=== PATIENT | female | born 1995 | race Caucasian/White ===

== ENCOUNTER 2021-03-02 15:29 | Outpatient (CLI) | payer BC, SELFPAY ==
--- NOTE | 2021-03-02 15:49 | US_ITS ---
WS: [id number] EARLY OBSTETRICAL ULTRASOUND (<14 WEEKS). HISTORY: SUPERVISION OF NORMAL COMPARISON: None available. Single intrauterine gestational sac is identified. Cardiac activity at 176 BPM. [place]-rump length eduardo sures 3.6 cm which corresponds to a gestation of 10w4d. Normal-appearing yolk sac and amnion demonstr ated. No subchorionic hemorrhage. No free fluid. Normal size ovaries with no mass. Cervix is closed and normal length of 4.7 cm. US/US OB <= 14 weeks fetus [id number] IMPRESSION: 1. Single intrauterine gestation of 10 weeks 4 days with an EDC of 09/24/2021. 2. Normal cardiac activity.
== END 2021-03-02 15:30 | disposition home or self-care (01) ==
LOC: RAD 15:33
PROVIDERS: Visit Provider Family Medicine
DX: Z34.81 Encounter for supervision of other normal pregnancy, first trimester; Z3A.10 10 weeks gestation of pregnancy
CPT/HCPCS: 76801

== ENCOUNTER 2021-05-19 09:15 | Outpatient (CLI) | payer BC, SELFPAY ==
--- NOTE | 2021-05-19 09:18 | US_ITS ---
WS: [id number] ULTRASOUND OB COMPLETE TECHNIQUE: Complete ultrasound. CLINICAL INFORMATION: ANATOMY COMPARISON: March 02, 2021 FINDINGS: Cervix is long and closed and measures 7.6 cm Single interuterine gestation is identified with cephalic presentation. Placenta is anterior. Placenta grade 0. Normal amniotic fluid volume. cardiac activity: 147 BPM. AGA: 21w5d OFELIA by ultrasound: 09/24/2021 Estimated weight: 467 g BDP: 5.0 cm = 21w1d HC: 18.8 cm = 21w1d AC: 16.8 cm = 21w5d FEMUR LENGTH: 3.9 cm = 22w4d Anatomic survey: Four-chamber heart not well visualized. Anatomic survey is otherwise normal. Normal stomach. Kidneys and bladder are normal. Normal 3 vessel cord. Normal 3 vessel cord insertion. Normal spine. Intracranial contents are normal. Normal posterio r fossa and cisterna magna. US/US OB >= 14 weeks fetus [id number] IMPRESSION: 1. Single intrauterine with visualized cardiac activity. AGA 21w5d w ith OFELIA 09/24/2021. 2. Placenta is anterior. No evidence of abruption or previa. 3. Four-chamber heart not well visualized. Anatomic survey is otherwise normal . 4. Normal amniotic fluid volume.
== END 2021-05-19 09:16 | disposition home or self-care (01) ==
LOC: RAD 09:16
PROVIDERS: PCP Family Medicine; Visit Provider Family Medicine
DX: Z34.82 Encounter for supervision of other normal pregnancy, second trimester; Z3A.21 21 weeks gestation of pregnancy
CPT/HCPCS: 76805

== ENCOUNTER 2021-07-13 07:48 | Outpatient (CLI) | payer BC, SELFPAY ==
--- NOTE | 2021-07-13 07:57 | US_ITS ---
WS: [id number] ULTRASOUND OB FOCUSED HISTORY: FOLLOW UP US OF HEART COMPARISON: 05/19/2021 Single intrauterine gestation in cephalic position. Cervix is closed at 3.8 cm. Placenta is anterior and grade 1. heart rate at 141 BPM. Difficulty visualizing four-chamber heart due to maternal body habitus and positioning. Cardiac outflow tracts are better seen today but still difficult due to position. [place] [id number] IMPRESSION: 1. Limited evaluation of the four-chamber heart. Continued limited evaluation of the outflow tracts due to body habitus and position of the fetus. 2. Normal cardiac activity.
== END 2021-07-13 07:49 | disposition home or self-care (01) ==
LOC: RAD 07:50
PROVIDERS: PCP Family Medicine; Visit Provider Family Medicine
DX: Z34.80 Encounter for supervision of other normal pregnancy, unspecified trimester (principal)
CPT/HCPCS: 76816

== ENCOUNTER 2021-07-26 18:20 | Outpatient (CLI) | payer BC, SELFPAY ==
[2021-07-26] VITALS (45 sets, daily range): BP systolic 103–136; BP diastolic 52–64; PULSE 108–132; RESP 16; TEMP 37.4; O2SAT 93–100; BMI 33.4
[2021-07-26 19:40] LABS: Basophils % 0.1 %; Eosinophils % 0.3 %; Hematocrit 32.6 % (37.0-47.0); Hemoglobin 10.6 g/dL (11.5-15.3); Lymphocytes # 0.4 10^3/uL (0.8-4.8); Lymphocytes % 4.4 %; Mean Corpuscular HGB Conc 32.5 g/dL (30.0-36.0); Mean Corpuscular Hemoglobin 30.4 pg (28.0-34.0); Mean Corpuscular Volume 93.4 fl (81-99); Mean Platelet Volume 11.6 fL (7.4-10.4); Monocytes # 0.7 10^3/uL (0.2-0.9); Monocytes % 7.3 %; Neutrophils % 87.2 %; Nucleated Red Blood Cells % 0 %; Platelet Count 185 10^3/cmm (130-400); Red Blood Count 3.49 10^6/uL (4.1-5.3); Red Cell Distribution Width 14.1 % (12.1-15.1); White Blood Count 10.1 10^3/uL (4.0-10.0)
[2021-07-26 20:03] LABS: Add Urine Microscopic? YES; Bilirubin Urine Neg (Negative); Blood Urine Neg (Negative); Glucose Urine UA Norm (Normal); Ketones Urine Negative (Negative); Leukocyte Esterase Urine Trace (Negative); Nitrate Urine Negative (Negative); Protein Urine Neg (Negative); Urine Appearance Hazy (CLEAR); Urine Color Yellow (Yellow); Urobilinogen Urine Neg (Negative); pH Urine 7 (5-7)
[2021-07-26 20:04] LABS: Add Urine Culture? No; Bacteria Urine 1+ /hpf
[2021-07-26 20:27] LABS: Chloride 100 mmol/L (98-107)
[2021-07-26 20:40] LABS: Alanine Aminotransferase 13 U/L (0-33); Albumin Level 3.5 g/dL (3.5-5.2); Alkaline Phosphatase 94 IU/L (35-105); Aspartate Amino Transferase 19 U/L (0-32); Blood Urea Nitrogen 3 mg/dL (6-20); Calcium 9.7 mg/dL (8.5-10.5); Carbon Dioxide 19 mmol/L (22-29); Globulin 2.6 g/dL (1.3-4.6); Glomerular Filtration Rate 191.5 mL/min (90-130); Glucose 101 mg/dL (65-115); Osmolality Calculated 269 mOsm/kg (285-295); Sodium 131 mmol/L (136-145); Total Bilirubin 0.4 mg/dL (0.15-1.2); Total Protein 6.1 g/dL (6.6-8.7)
[2021-07-26 21:25] LABS: Adenovirus Not Detected (NOT DETECT); Chlamydia Pneumoniae Not Detected (NOT DETECT); Coronavirus 229E,HKU1,NL63,OC4 Not Detected (NOT DETECT); Human Metapneumovirus Not Detected (NOT DETECT); Human Rhinovirus/Enterovirus Not Detected (NOT DETECT); Influenza A Not Detected (NOT DETECT); Influenza A H1 Not Detected (NOT DETECT); Influenza A H1-2009 Not Detected (NOT DETECT); Influenza A H3 Not Detected (NOT DETECT); Influenza B Not Detected (NOT DETECT); Mycoplasma Pneumoniae Not Detected (NOT DETECT); Parainfluenza Virus Type 1 Not Detected (NOT DETECT); Parainfluenza Virus Type 2 Not Detected (NOT DETECT); Parainfluenza Virus Type 3 Not Detected (NOT DETECT); Parainfluenza Virus Type 4 Not Detected (NOT DETECT); Respiratory Syncytial Virus A Not Detected (NOT DETECT); Respiratory Syncytial Virus B Not Detected (NOT DETECT); SARS-COV-2 Detected (NOT DETECT)
[2021-07-26 21:26] LABS: Magnesium 1.4 mg/dL (1.7-2.3)
[2021-07-26] MEDS: potassium chloride ER 20 mEq Tablet 40 MEQ PO (21:47)
== END 2021-07-26 21:55 | disposition home or self-care (01) ==
LOC: OPOB 18:28 → OBGYN 18:29
PROVIDERS: PCP Family Medicine; Visit Provider Family Medicine
DX: O26.899 Other specified pregnancy related conditions, unspecified trimester (principal); Z3A.00 Weeks of gestation of pregnancy not specified
CPT/HCPCS: 36415; 59025; 80053; 81001; 83735; 85025; 87635; 99211

== ENCOUNTER 2021-07-28 08:11 | Outpatient (CLI) | payer BC, SELFPAY ==
[2021-07-28 08:21] VITALS: BMI 33.7
[2021-07-28 09:00] VITALS: BP 140/80; PULSE 119; RESP 17; TEMP 36.7; O2SAT 99
[2021-07-28 09:25] VITALS: BP 120/75; PULSE 97; RESP 18; TEMP 36.9; O2SAT 98
[2021-07-28 10:20] VITALS: BP 132/73; PULSE 95; RESP 17; TEMP 36.8; O2SAT 98
== END 2021-07-28 10:23 | disposition home or self-care (01) ==
PROVIDERS: PCP Family Medicine; Visit Provider Nurse Practitioner Family
DX: U07.1 COVID-19 (principal)
CPT/HCPCS: 96365

== ENCOUNTER 2021-09-08 11:20 | Outpatient (CLI) | payer BC, SELFPAY ==
[2021-09-08] VITALS (10 sets, daily range): BP systolic 118–129; BP diastolic 62–71; PULSE 85–100; RESP 17; TEMP 36.2; BMI 34.4
--- NOTE | 2021-09-08 | US_ITS ---
WS: [id number] BIOPHYSICAL PROFILE AMNIOTIC FLUID HISTORY: INCREASED BLOOD PRESSURE KHOA,BPP COMPARISON: 08/14/2021 Cardiac activity: 144 bpm. Cervix: closed. Placenta: Anterior, no previa or abruption. Placenta grade: 2 Parameters are as follows: Breathin Movement: 2 Tone: 2 Fluid volume: 2 Amniotic fluid index: 15.1 cm. Largest vertical pocket 5.4 cm. US/US OB BPP wo NST [id number] IMPRESSION: 1. Biophysical profile score: 8/8. 2. Normal amniotic fluid index.
--- NOTE | 2021-09-08 11:39 | US_ITS ---
WS: [id number] BIOPHYSICAL PROFILE AMNIOTIC FLUID HISTORY: INCREASED BLOOD PRESSURE KHOA,BPP COMPARISON: 08/14/2021 Cardiac activity: 144 bpm. Cervix: closed. Placenta: Anterior, no previa or abruption. Placenta grade: 2 Parameters are as follows: Breathin Movement: 2 Tone: 2 Fluid volume: 2 Amniotic fluid index: 15.1 cm. Largest vertical pocket 5.4 cm. US/US OB limited [id number] IMPRESSION: 1. Biophysical profile score: 8/8. 2. Normal amniotic fluid index.
[2021-09-09 17:50] LABS: Total Volume, Urine 3110 mL; Urine Total Protein 8.5 mg/24HR (0-150); Urine Total Protein 24 Hour 264.4 mg/dL (0-150)
== END 2021-09-08 13:17 | disposition home or self-care (01) ==
LOC: OPOB 11:25 → OBGYN 11:26
PROVIDERS: PCP Family Medicine; Visit Provider Family Medicine
DX: O16.9 Unspecified maternal hypertension, unspecified trimester (principal); Z3A.00 Weeks of gestation of pregnancy not specified
CPT/HCPCS: 59025; 76815; 76819; 99211

== ENCOUNTER 2021-09-09 16:20 | Outpatient (CLI) | payer BC, SELFPAY | END 2021-09-09 16:21 | disposition home or self-care (01) | PROVIDERS: PCP Family Medicine; Visit Provider Family Medicine | DX: Z01.89 Encounter for other specified special examinations (principal) | CPT/HCPCS: 84156 ==

== ENCOUNTER 2021-09-14 09:40 | Outpatient (CLI) | payer BC, SELFPAY ==
[2021-09-14 09:40] VITALS: RESP 17; BMI 34.5
[2021-09-14 09:54] VITALS: BP 135/78; PULSE 88
[2021-09-14 10:10] VITALS: BP 127/58; PULSE 90
[2021-09-14 10:22] VITALS: BP 127/58; PULSE 90
== END 2021-09-14 10:22 | disposition home or self-care (01) ==
LOC: OPOB 09:44 → OBGYN 09:45
PROVIDERS: PCP Family Medicine; Visit Provider Family Medicine
DX: O16.9 Unspecified maternal hypertension, unspecified trimester (principal); Z3A.00 Weeks of gestation of pregnancy not specified
CPT/HCPCS: 59025

== ENCOUNTER 2021-09-21 15:55 | Outpatient (CLI) | payer BC, SELFPAY ==
[2021-09-21 13:40] VITALS: BMI 34.7
[2021-09-21 16:05] VITALS: BP 138/78; PULSE 88
[2021-09-21 16:06] VITALS: RESP 18; TEMP 36.6
[2021-09-21 16:21] VITALS: BP 135/67; PULSE 83
--- NOTE | 2021-09-21 16:59 | PC.NURSE ---
Documentation time entered in error patient here from 1555 to 1632.
== END 2021-09-21 16:32 | disposition home or self-care (01) ==
LOC: OPOB 15:58 → OBGYN 15:59
PROVIDERS: PCP Family Medicine; Visit Provider Family Medicine
DX: O16.9 Unspecified maternal hypertension, unspecified trimester (principal); Z3A.00 Weeks of gestation of pregnancy not specified
CPT/HCPCS: 59025

== ENCOUNTER 2021-09-24 18:46 | Inpatient (IN) | payer BC, SELFPAY ==
[2021-09-24] VITALS (16 sets, daily range): BP systolic 122–141; BP diastolic 56–78; PULSE 77–98; RESP 17; TEMP 36.4; BMI 34.5
[2021-09-24 19:03] LABS: Basophils % 0.1 %; Eosinophils # 0.1 10^3/uL (0.0-0.8); Eosinophils % 0.5 %; Hematocrit 34.3 % (37.0-47.0); Hemoglobin 11.3 g/dL (11.5-15.3); Lymphocytes # 2.5 10^3/uL (0.8-4.8); Lymphocytes % 17.7 %; Mean Corpuscular HGB Conc 32.9 g/dL (30.0-36.0); Mean Corpuscular Hemoglobin 31.1 pg (28.0-34.0); Mean Corpuscular Volume 94.5 fl (81-99); Mean Platelet Volume 12.6 fL (7.4-10.4); Monocytes % 6.8 %; Neutrophils # 10.51 10^3/uL (1.8-7.7); Neutrophils % 74.5 %; Nucleated Red Blood Cells % 0 %; Platelet Count 223 10^3/cmm (130-400); Red Blood Count 3.63 10^6/uL (4.1-5.3); Red Cell Distribution Width 14.4 % (12.1-15.1); White Blood Count 14.1 10^3/uL (4.0-10.0)
[2021-09-24] MEDS: oxytocin 30 UNIT/500 ML BAG 4 UNIT IV (19:45)
[2021-09-24] MEDS: dextrose 5%-lactated ringers 1,000 ML 125 ML IV (19:46)
--- NOTE | 2021-09-24 21:05 | PM.HP ---
Providers/Chief Complaint Admitting Physician: Renny Matthews MD Primary Care Provider: Renny Matthews MD Chief Complaint: induction History of Present Illness Cass Gomez is a 26 year old at 39.3 weeks gestation by LMP consistent with 11-week ultrasound. Her is complicated by COVID-19 on July 26, 2021, borderline gestational hypertension. The patient presents to labor and delivery for induction of labor. Her blood pressures had been becoming more elevated and she was pulled off of work and they began to improve significantly. For this reason we were able to wait for induction of labor. Patient denies any headaches, flashes of light, fevers, cough, nausea, vomiting, use fluid, vaginal bleeding. The patient is 3 cm dilated up on arrival and will be started on IV Pitocin. Medications/Allergies Home Medications Medication Instructions Recorded Confirmed Last Taken Type amoxicillin 875 mg tablet 875 mg PO BID 7 Days #14 tab 01/04/20 01/04/20 Unknown Rx pseudoephedrine HCl 30 mg tablet 30 mg PO Q6H PRN 15 Days #30 tab 01/04/20 01/04/20 Unknown Rx (Sudafed) 100 ml PO 09/08/21 Unknown History Allergies Allergy/AdvReac Type Severity Reaction Status Date / Time Sulfa (Sulfonamide Allergy rash Verified 09/14/21 11:22 Antibiotics) PFSH Acute PFSH: Medical History Otitis media s Family History (Updated 01/04/20 @ 15:39 by Josette Carrillo LPN) Other Cancer Social History Smoking and tobacco status: never smoked Alcohol intake: never Female Reproductive History: : 2 Vitals/I&O/Wt Last Vital Signs Pulse 81 09/24/21 20:42 Resp 17 09/24/21 18:56 BP 133/73 09/24/21 20:42 Physical Exam Narrative: General: Alert and oriented x3 Eyes: Pupils equal round and reactive to light and accommodation Mouth: Mucous membranes moist, pharynx non-erythematous Cardiac: Regular rate and rhythm without murmurs Lungs: Clear to auscultation bilaterally without wheezes, crackles or rhonchi Abdomen: Soft, non-tender, fundus consistent with gestational age Extremities: Trace edema in the bilateral lower extremities Data : 09/24/21 18:09 A&P Assessment and plan (1) Intrauterine : Status: Acute (2) Gestational hypertension: Status: Acute Plan The patient is doing well at this time. heart tones are in the mid 150s with moderate variability good accelerations with a category 1 tracing. She is having contractions every 2 to 3 minutes on 8 units of IV Pitocin. She has changed from 2 cm dilation to 4 to 5 cm dilation. She will be set up for a laboring epidural. Proceed with routine intrapartum management of labor. We will watch blood pressures to be sure that they do not start to increase significantly. All questions were answered. The patient and her are in agreement with her plan of care. The patient is GBS negative. Test was done on 09/04/2021. Attestations Medical Necessity Statement*: The patient will be here for greater than 2 midnights due to routine intrapartum and management of labor and delivery. Coding Level of Care Code Acute Viscose Department Worker for Boni Rodriguez Diagnoses Intrauterine Z34.90 Gestational hypertension O13.9
[2021-09-24] MEDS: lactated ringers 1,000 ML 999 ML IV (21:08)
[2021-09-25] VITALS (56 sets, daily range): BP systolic 101–149; BP diastolic 53–91; PULSE 65–122; RESP 16; TEMP 36.3–36.7; O2SAT 86–100
[2021-09-25] MEDS: lactated ringers 1,000 ML 999 ML IV ×2 (01:19→02:34)
--- NOTE | 2021-09-25 02:44 | ANES.PREANE2 ---
Pre-Anesthetic Assessment Height/Weight: Height 1.78 m Pulse Resp BP 76 17 125/57 09/25/21 02:27 09/24/21 18:56 09/25/21 02:27 Preop Diagnosis: labor epidural Familial anesthetic complications: none Was Beta Tessa taken within 24 hours: N/A Was Clonidine taken within 24 hours: N/A Last Intake: 17:30 Social No alcohol and No tobacco Exam alert, oriented x 3, clear to auscultation bilaterally and regular rate & rhythm Airway Submandibular: within normal limits Cervical ROM: within normal limits Mallampati: Class I Dentition: full Pulmonary None reported CV/HEM Hypertension (with ) None reported Hepatic None reported GI Gastroesophageal Reflux Disease (with ) Metabolic None reported Musc/skel None reported Neuropsych Anxiety Anesthetic Plan ASA status: 2 Anesthesia: Regional (specify below) (epidural) Medications/Allergies Home Medications Medication Instructions Recorded Confirmed Last Taken Type amoxicillin 875 mg tablet 875 mg PO BID 7 Days #14 tab 01/04/20 01/04/20 Unknown Rx pseudoephedrine HCl 30 mg tablet 30 mg PO Q6H PRN 15 Days #30 tab 01/04/20 01/04/20 Unknown Rx (Sudafed) 100 ml PO 09/08/21 Unknown History Allergies Allergy/AdvReac Type Severity Reaction Status Date / Time Sulfa (Sulfonamide Allergy rash Verified 09/14/21 11:22 Antibiotics) Current Medications Generic Name Dose Route Start Last Admin Trade Name Freq PRN Reason Stop Dose Admin Dextrose/Lactated Ringer's 1,000 mls @ 125 mls/hr 09/24/21 18:45 09/24/21 21:08 Dextrose 5%-Lactated Ringers IV 0 mls/hr .Q8H BOYD Infusion Oxytocin 30 unit in 500 mls @ 1 mls/hr 09/24/21 18:45 09/25/21 00:06 Pitocin IV 12 milliunit/min .Q24H BOYD 12 mls/hr Titration Protocol 1 MILLIUNIT/MIN Lactated Ringer's 1,000 mls @ 999 mls/hr 09/24/21 20:41 09/25/21 01:19 Lactated Ringers IV 999 mls/hr .Q1H1M PRN Administration See label comments Lactated Ringer's 1,000 mls @ 999 mls/hr 09/25/21 02:26 09/25/21 02:34 Lactated Ringers IV 09/25/21 03:26 999 mls/hr .Q1H1M ONE Administration PFSH Anesthesia Medical History Otitis media s Family History (Updated 01/04/20 @ 15:39 by Josette Carrillo LPN) Other Cancer Social History Smoking and tobacco status: never smoked Alcohol intake: never Female Reproductive History : 2 Data Anesthesia : 09/24/21 18:09 Short CBC 09/24/21 Range/Units 18:09 WBC 14.1 H (4.0-10.0) 10^3/uL Hgb 11.3 L (11.5-15.3) g/dL Hct 34.3 L (37.0-47.0) % MCV 94.5 (81-99) fl Plt Count 223 (130-400) 10^3/cmm Neut % (Auto) 74.5 % Neut # (Auto) 10.51 H (1.8-7.7) 10^3/uL Cardiac Studies: No Data to Display
--- NOTE | 2021-09-25 03:14 | ANES.PROC ---
Anesthesia Procedures Procedure/Date: 09/25/21 Epidural: Time Out Performed: Yes Consents Signed: Procedure Consent Consent: requested by attending/covering physician, from patient, risks and benefits reviewed and patient agrees to proceed Lumbar Level: L3-L4 Epidural position: sitting Epidural procedure: sterile prep of area (betadine), 1% lidocaine to numb the area (3ml), 18 g needle, neg for paresthesia, test dose given, 1.5% xylocaine 1:200k epi (3ml/2ml), placed PCEA, no systemic response, sterile dressing applied, L.U.D. no apparent complications and 0.2% Ropiavacaine @ mls/hr (13ml/hr)
--- NOTE | 2021-09-25 08:50 | PM.DELIVERY ---
Delivery Note: Date of delivery: September 25, 2021 Pre-delivery diagnoses: 1. Intrauterine at 39.4 weeks gestation 2. COVID-19 on July 26, 2021 3. Borderline gestational hypertension Post-delivery diagnoses: 1. Intrauterine status post spontaneous vaginal delivery at 39.4 weeks gestation 2. COVID-19 on July 26, 2021 3. Borderline gestational hypertension 4. Delivery of healthy female weighing 9 pounds 13 ounces with Apgars of 9 and 9 Procedure: Spontaneous vaginal delivery Delivering Physician: Renny Matthews MD Estimated blood loss (mL): 100 Findings: 1. Intact placenta with central umbilical cord insertion site 2. Healthy female weighing 9 pounds 13 ounces with Apgars of 9 and 9 Pre-Delivery Course: Cass Gomez is a 26 year old G2 now P2 status post spontaneous vaginal delivery at 39.4 weeks gestation by LMP consistent with 11-week ultrasound.? Her was complicated by COVID-19 on July 26, 2021, borderline gestational hypertension. The patient was brought in for induction of labor secondary to borderline gestational hypertension. She was admitted on the evening of 09/24/2021 and was 3 cm dilated. She was started on IV Pitocin and made gradual change. By 5:57 AM on 09/25/2021 she had spontaneous rupture of membranes. Meconium stained fluid was noted. The patient did not have any concerning heart tone findings other than early decelerations near delivery. The patient was complete by 7:58 AM on 09/25/2021. Delivery: The patient began pushing at 8:11 AM on 09/25/2021. The patient pushed well and the infant delivered in the OA position at 8:21 AM on 09/25/2021. Left shoulder was the anterior shoulder and it delivered with steady downward pressure. Rest the infant delivered without complication. There was no nuchal cord. The 's mouth and nose were bulb suctioned by myself. The infant was placed on the mother's chest where the nurses were waiting to care for her. The cord was clamped after approximately 1 minute by myself and cut by the 's father. Cord blood was obtained. Cord was then drained of blood and traction was placed on the umbilical cord and uterine massage was carried out. The placenta delivered without complication at 8:27 AM on 09/25/2021. The placenta was noted to be intact with a central umbilical cord insertion site. There were scattered calcifications on the placental bed. No significant meconium staining was noted. The cervix was inspected and no lacerations were noted. Vaginal wall was inspected and a second-degree midline vaginal laceration was noted in the perineal region. The epidural provided adequate anesthesia and 3-0 Vicryl was used in a running fashion to close the laceration. A rectal exam was done and no sutures were noted in the rectal vault. The patient tolerated the procedure well. Currently both the mother and infant are doing well. History History History 2 Term 2 Miscarriages/Ectopic 0 Living Children 2 Coding Level of Care Code Acute Nuclear Medicine Physician for Chg Jennifer
[2021-09-25] MEDS: docusate sodium 100 mg Capsule PO ×2 (11:55→18:30)
[2021-09-25] MEDS: prenatal vitamin Capsule 1 CAP PO (11:55)
[2021-09-25] MEDS: lanolin oint 7 gm 1 APPLIC TOPICAL (11:55)
[2021-09-25] MEDS: ibuprofen 800 mg tablet PO ×3 (11:56→23:38)
[2021-09-25] MEDS: benzocaine-menthol 78 gm Canister 1 SPRAY TOPICAL (11:56)
--- NOTE | 2021-09-25 13:35 | ANE.PACU2 ---
Inpatient post-anesthesia follow up: Airway intact: Yes Vital signs: Temperature 97.3 F Pulse Rate 93 Respiratory Rate 17 Blood Pressure 124/66 Pulse Oximetry 97 Oxygen Delivery Me thod Room Air Oxygen Flow Rate Fraction of Inspir ed Oxygen Hydration adequate: Yes Nausea and vomiting: No Pain level: 2 Mental status: Baseline
[2021-09-25 21:56] LABS: Hematocrit 32.2 % (37.0-47.0); Hemoglobin 10.6 g/dL (11.5-15.3); Mean Corpuscular HGB Conc 32.9 g/dL (30.0-36.0); Mean Corpuscular Volume 94.2 fl (81-99); Mean Platelet Volume 12.2 fL (7.4-10.4); Platelet Count 224 10^3/cmm (130-400); Red Blood Count 3.42 10^6/uL (4.1-5.3); Red Cell Distribution Width 14.4 % (12.1-15.1); White Blood Count 16.8 10^3/uL (4.0-10.0)
[2021-09-26 04:04] VITALS: BP 123/70; PULSE 78
[2021-09-26 04:12] VITALS: TEMP 36.7
[2021-09-26] MEDS: ibuprofen 800 mg tablet PO ×3 (09:19→22:47)
[2021-09-26] MEDS: docusate sodium 100 mg Capsule PO (09:19)
[2021-09-26] MEDS: prenatal vitamin Capsule 1 CAP PO (09:19)
[2021-09-26 09:25] VITALS: BP 125/69; PULSE 81; RESP 16; TEMP 36.6
--- NOTE | 2021-09-26 14:58 | PM.PN ---
Subjective Subjective: The patient is doing well today. She is ambulating, voiding, passing gas and tolerating food by mouth. Her pain is well controlled. She has no concerns at this time. Vitals/I&O/Wt Last Vital Signs Temp 97.8 F 09/26/21 09:25 Pulse 81 09/26/21 09:25 Resp 16 09/26/21 09:25 BP 125/69 09/26/21 09:25 Pulse Ox 97 09/25/21 04:17 09/25/21 09/26/21 09/26/21 22:59 06:59 14:59 Output Total 100 / 1200 Balance -100 / -91.333 Weight last 48 hrs Weight 241 lb Weight 241 lb Physical Exam Narrative: General: Alert and oriented x3 Cardiac: Regular rate and rhythm without murmurs Lungs: Clear to auscultation bilaterally without wheezes, crackles or rhonchi Abdomen: Soft, mild tenderness over uterus. The uterus is firm and 2 cm below the umbilicus. Extremities: Trace edema in the bilateral lower extremities Urinary Catheter Management: Newman Latex: Cath Placed During This Visit: yes, but has since been removed by the nurse Reason for Continuing Indwelling Catheter: Decision to DC Catheter Urinary Catheter Date of Insertion: 09/25/21 Urinary Catheter Time of Insertion: 03:40 Date Urinary Catheter Removed: 09/25/21 Time Urinary Catheter Discontinued: 08:05 Data : 09/25/21 21:39 A&P Assessment and plan (1) Spontaneous vaginal delivery: Status: Acute Plan The patient is doing well. She is showing no signs of complications. We will continue with routine care. If everything continues to go well, will plan for discharge home tomorrow. Attestations Medical Necessity Statement*: The patient will be here for greater than 2 midnights due to routine intrapartum and management of labor and delivery. Coding Level of Care Code Acute Scrubbing Machine Operator for Boni Rodriguez Diagnoses Spontaneous vaginal delivery O80
[2021-09-26 15:10] VITALS: BP 123/75; PULSE 69; RESP 16; TEMP 36.6
--- NOTE | 2021-09-27 08:47 | PM.DCS ---
Discharge Providers Date of Admission: 09/24/21 18:46 Date of Discharge: September 27, 2021 Attending Provider at Admission: Renny Matthews MD Attending Provider at Discharge: Renny Matthews MD Primary Care Provider: Renny Matthews MD Diagnoses at Discharge Discharge Diagnosis (1) Spontaneous vaginal delivery: Status: Resolved Other Information Additional DC diagnoses/information: 1.? Intrauterine status post spontaneous vaginal delivery at 39.4 weeks gestation 2.? COVID-19 on July 26, 2021 3.? Borderline gestational hypertension 4.? Delivery of healthy infant female weighing 9 pounds 13 ounces with Apgars of 9 and 9? Reason for Visit Reason for Visit: induction Brief History: Cass Gomez is a 26 year old G2 now P2 status post spontaneous vaginal delivery at 39.4 weeks gestation by LMP consistent with 11-week ultrasound.? Her was complicated by COVID-19 on July 26, 2021, borderline gestational hypertension. Hospital Course Hospital Course The patient was brought in for induction of labor secondary to borderline gestational hypertension.? She was admitted on the evening of 09/24/2021 and was 3 cm dilated.? She was started on IV Pitocin and made gradual change.? By 5:57 AM on 09/25/2021 she had spontaneous rupture of membranes.? Meconium stained fluid was noted.? The patient did not have any concerning heart tone findings other than early decelerations near delivery.? The patient was complete by 7:58 AM on 09/25/2021. The patient began pushing at 8:11 AM on 09/25/2021.? The patient pushed well and the infant delivered in the OA position at 8:21 AM on 09/25/2021.? Left shoulder was the anterior shoulder and it delivered with steady downward pressure.? Rest the infant delivered without complication.? There was no nuchal cord.? The infant's mouth and nose were bulb suctioned by myself.? The was placed on the mother's chest where the nurses were waiting to care for her.? The cord was clamped after approximately 1 minute by myself and cut by the infant's father.? Cord blood was obtained.? Cord was then drained of blood and traction was placed on the umbilical cord and uterine massage was carried out.? The placenta delivered without complication at 8:27 AM on 09/25/2021.? The placenta was noted to be intact with a central umbilical cord insertion site.? There were scattered calcifications on the placental bed.? No significant meconium staining was noted.? The cervix was inspected and no lacerations were noted.? Vaginal wall was inspected and a second-degree midline vaginal laceration was noted in the perineal region.? The epidural provided adequate anesthesia and 3-0 Vicryl was used in a running fashion to close the laceration. the patient has done well. She has had no complications. Her did have hypoglycemia that was treated with IV D10. They are both doing well at the time of discharge and the mother is breast-feeding. We will plan for discharge home today. Routine discharge instructions were discussed. All questions were answered. The patient and her are in agreement with current plan of care. Physical Exam Narrative: General: Alert and oriented x3 Cardiac: Regular rate and rhythm without murmurs Lungs: Clear to auscultation bilaterally without wheezes, crackles or rhonchi Abdomen: Soft, mild tenderness over uterus. The uterus is firm and 2 cm below the umbilicus. Extremities: Trace edema in the bilateral lower extremities Urinary Catheter Management: Newman Latex: Cath Placed During This Visit: yes, but has since been removed by the nurse Reason for Continuing Indwelling Catheter: Decision to DC Catheter Urinary Catheter Date of Insertion: 09/25/21 Urinary Catheter Time of Insertion: 03:40 Date Urinary Catheter Removed: 09/25/21 Time Urinary Catheter Discontinued: 08:05 Discharge Data Studies Completed and Pending Laboratory Results WBC 16.8 10^3/uL (4.0-10.0) H 09/25/21 21:39 RBC 3.42 10^6/uL (4.1-5.3) L 09/25/21 21:39 Hgb 10.6 g/dL (11.5-15.3) L 09/25/21 21:39 Hct 32.2 % (37.0-47.0) L 09/25/21 21:39 MCV 94.2 fl (81-99) 09/25/21 21:39 MCH 31.0 pg (28.0-34.0) 09/25/21 21:39 MCHC 32.9 g/dL (30.0-36.0) 09/25/21 21:39 RDW 14.4 % (12.1-15.1) 09/25/21 21:39 Plt Count 224 10^3/cmm (130-400) 09/25/21 21:39 MPV 12.2 fL (7.4-10.4) H 09/25/21 21:39 Neut % (Auto) 74.5 % 09/24/21 18:09 Lymph % (Auto) 17.7 % 09/24/21 18:09 [place] % (Auto) 6.8 % 09/24/21 18:09 Eos % (Auto) 0.5 % 09/24/21 18:09 Baso % (Auto) 0.1 % 09/24/21 18:09 Neut # (Auto) 10.51 10^3/uL (1.8-7.7) H 09/24/21 18:09 Lymph # (Auto) 2.5 10^3/uL (0.8-4.8) 09/24/21 18:09 [place] # (Auto) 1.0 10^3/uL (0.2-0.9) H 09/24/21 18:09 Eos # (Auto) 0.1 10^3/uL (0.0-0.8) 09/24/21 18:09 Baso # (Auto) 0.0 10^3/uL (0.0-0.1) 09/24/21 18:09 Nucleated RBC % (auto) 0 % 09/24/21 18:09 Nucleated RBCs # 0.0 /100WBC 09/24/21 18:09 Vitals Last Vital Signs Temp 97.9 F 09/26/21 15:10 Pulse 69 09/26/21 15:10 Resp 16 09/26/21 15:10 BP 123/75 09/26/21 15:10 Pulse Ox 97 09/25/21 04:17 Discharge Plan Discharge Patient Disposition: Home Condition: Good Prescriptions: New ibuprofen 800 mg Tablet 800 mg PO TID Qty: 60 0RF ferrous sulfate 325 mg (65 mg iron) tablet 325 mg PO BID Qty: 30 0RF Continued 1 tab PO DAILY 0RF Discharge Orders: Discharge Order (Routine); Ordered 09/27/21 Ordered By: Renny Matthews Referrals: Renny Matthews MD [Primary Care Provider] - 11/07/21 10:10 am Discharge Diet: Regular Discharge Activity: Resume usual activity Patient Instructions: Depression (DC), Bleeding (DC), Preeclampsia and Eclampsia After Delivery (GEN), OB Discharge Report, OB Food/Drug Interaction Guide, Opioid Safety, OB Home Care, OB Your Care - [facility], OB [facility]oud Parent Packet, OB Vaginal Deliveries, Abnormal Bleeding Activity Restrictions/Additional Instructions: Nothing per vagina for 6 weeks Discharge Attestations Time Spent in Discharge Care*: greater than 30 min Quality Metrics Clinical Quality Measures [ No reported AMI, CVA or VTE this stay] Coding Level of Care Code Acute Chg FW DC note Diagnoses Spontaneous vaginal delivery O80
[2021-09-27] MEDS: prenatal vitamin Capsule 1 CAP PO (09:06)
[2021-09-27] MEDS: docusate sodium 100 mg Capsule PO (09:06)
[2021-09-27] MEDS: ibuprofen 800 mg tablet PO (09:06)
[2021-09-27 09:20] VITALS: BP 122/85; PULSE 81; RESP 18; TEMP 36.7; O2SAT 97
== END 2021-09-27 09:45 | disposition home or self-care (01) | DRG 998 ==
LOC: OPOB 18:46 → OBGYN 18:46
PROVIDERS: Admitting Provider Family Medicine; PCP Family Medicine; Visit Provider Family Medicine
DX: O13.4 Gestational [pregnancy-induced] hypertension without significant proteinuria, complicating childbirth (principal); Z3A.39 39 weeks gestation of pregnancy; Z37.0 Single live birth; O70.1 Second degree perineal laceration during delivery
CPT/HCPCS: 36415; 51702; 59409; 85025; 85027; J2795

== ENCOUNTER → 2021-11-07 10:49 | Outpatient (BNVA) | payer BC, SELFPAY | PROVIDERS: PCP Family Medicine; Visit Provider Family Medicine | DX: Z39.2 Encounter for routine postpartum follow-up (principal) | CPT/HCPCS: 87624 ==

== ENCOUNTER → 2022-12-05 08:40 | Outpatient (BNVA) | payer BC, SELFPAY | PROVIDERS: PCP Family Medicine; Visit Provider Nurse Practitioner | DX: J32.9 Chronic sinusitis, unspecified (principal); J02.0 Streptococcal pharyngitis | CPT/HCPCS: 87880 ==

== ENCOUNTER → 2023-12-30 08:46 | Outpatient (BNVA) | payer BC, SELFPAY | PROVIDERS: PCP Family Medicine; Visit Provider Family Medicine | DX: Z34.90 Encounter for supervision of normal pregnancy, unspecified, unspecified trimester (principal); R30.0 Dysuria | CPT/HCPCS: 80307; 81000; 81025; 84144; 84443; 84702; 85025; 86592; 86762; 86803; 86850; 86900; 87086; 87340; 87491; 87591; 87624; 87806 ==

== ENCOUNTER → 2024-01-03 10:07 | Outpatient (BNVA) | payer BC, SELFPAY | PROVIDERS: PCP Family Medicine; Visit Provider Internal Medicine | DX: Z34.80 Encounter for supervision of other normal pregnancy, unspecified trimester (principal) | CPT/HCPCS: 84156 ==

== ENCOUNTER → 2024-01-09 08:47 | Outpatient (BNVA) | payer BC, SELFPAY | PROVIDERS: PCP Family Medicine; Visit Provider Family Medicine | DX: Z34.80 Encounter for supervision of other normal pregnancy, unspecified trimester (principal) | CPT/HCPCS: 84144; 84702 ==

== ENCOUNTER 2024-01-20 08:50 | Outpatient (CLI) | payer BC, SELFPAY ==
--- NOTE | 2024-01-20 09:15 | US_ITS ---
WS: [id number] EARLY OBSTETRICAL ULTRASOUND (<14 WEEKS). HISTORY: Dating US - 1-2 weeks from now COMPARISON: None available. Only transabdominal imaging submitted. Single intrauterine gestational sac is identified. Cardiac activity at 173 BPM. [place]-rump length eduardo sures 2.5 cm which corresponds to a gestation of 9 weeks 1 day. Normal-appearing yolk sac and amnion demonstrated. Tiny subchorionic hemorrhage. Subchorionic hemorrhage along the lower uterine sac measu res 8 x 4 mm. No free fluid. Nonvisualization of the LEFT ovary. US/US OB <= 14 weeks fetus [id number] IMPRESSION: 1. Single intrauterine gestation of 9 weeks 1 day with an EDC of 08/25/2024. 2. Tiny subchorionic hemorrhage.
== END 2024-01-20 08:51 | disposition home or self-care (01) ==
LOC: RAD 08:50
PROVIDERS: PCP Family Medicine; Visit Provider Family Medicine
DX: Z34.80 Encounter for supervision of other normal pregnancy, unspecified trimester (principal)
CPT/HCPCS: 76801; 80307; 81000; 81025; 84144; 84443; 84702; 85025; 86592; 86762; 86803; 86850; 86900; 87086; 87340; 87491; 87591; 87624; 87806

== ENCOUNTER → 2024-03-27 09:34 | Outpatient (BNVA) | payer BC, SELFPAY | PROVIDERS: PCP Family Medicine; Visit Provider Family Medicine | DX: Z34.80 Encounter for supervision of other normal pregnancy, unspecified trimester (principal) | CPT/HCPCS: 81511 ==

== ENCOUNTER → 2024-05-22 08:21 | Outpatient (BNVA) | payer BC, SELFPAY | PROVIDERS: PCP Family Medicine; Visit Provider Family Medicine | DX: Z34.80 Encounter for supervision of other normal pregnancy, unspecified trimester (principal) | CPT/HCPCS: 82950 ==

== ENCOUNTER → 2024-07-03 08:37 | Outpatient (BNVA) | payer BC, SELFPAY | PROVIDERS: PCP Family Medicine; Visit Provider Family Medicine | DX: Z51.81 Encounter for therapeutic drug level monitoring (principal); Z34.80 Encounter for supervision of other normal pregnancy, unspecified trimester | CPT/HCPCS: 85025 ==

== ENCOUNTER → 2024-07-30 14:07 | Outpatient (BNVA) | payer BC, SELFPAY | PROVIDERS: PCP Family Medicine; Visit Provider Family Medicine | DX: Z34.90 Encounter for supervision of normal pregnancy, unspecified, unspecified trimester (principal) | CPT/HCPCS: 87081 ==

== ENCOUNTER 2024-08-07 08:55 | Outpatient (CLI) | payer BC, SELFPAY ==
[2024-08-07] VITALS (14 sets, daily range): BP systolic 128–154; BP diastolic 58–80; PULSE 67–93; BMI 37.8
[2024-08-07 11:59] LABS: Basophils % 0.1 %; Eosinophils % 0.4 %; Hematocrit 34.8 % (36-47); Lymphocytes # 1.9 10^3/uL (0.8-4.8); Lymphocytes % 17.4 %; Mean Corpuscular HGB Conc 32.5 g/dL (30-55); Mean Corpuscular Hemoglobin 30.5 pg (27-33); Mean Corpuscular Volume 94.1 fl (85-98); Mean Platelet Volume 11.4 fL (7.4-10.4); Monocytes # 0.6 10^3/uL (0.2-0.9); Neutrophils # 8.03 10^3/uL (1.8-7.7); Neutrophils % 75.7 %; Nucleated Red Blood Cells % 0 %; Platelet Count 203 10^3/cmm (157-399); Red Cell Distribution Width 14.2 % (12.1-15.1); White Blood Count 10.61 10^3/uL (3.29-11.43)
[2024-08-07 12:00] LABS: Bilirubin Urine Negative (Negative); Blood Urine Negative (Negative); Glucose Urine UA Negative (Normal); Ketones Urine Negative (Negative); Leukocyte Esterase Urine 1+ (Negative); Nitrate Urine Negative (Negative); Protein Urine Trace (Negative); Specific Gravity, Urine 1.017 (1.005-1.030); Urine Appearance Cloudy (CLEAR); Urine Color Yellow (Yellow)
[2024-08-07 12:15] LABS: Alanine Aminotransferase 7 U/L (0-33); Albumin Level 3.4 g/dL (3.5-5.2); Alkaline Phosphatase 104 U/L (35-105); Anion Gap 13.3 (5-19); Aspartate Amino Transferase 12 U/L (0-32); Blood Urea Nitrogen 5 mg/dL (6-20); Calcium 8.9 mg/dL (8.5-10.5); Carbon Dioxide 22 mmol/L (22-29); Chloride 109 mmol/L (98-107); Creatinine Clr Calc Pharmacy 223.7974; Globulin 2.7 g/dL (1.3-4.6); Glomerular Filtration Rate 144.9 mL/min (90-130); Glucose 75 mg/dL (65-115); Osmolality Calculated 286 mOsm/kg (285-295); Potassium 4.3 mmol/L (3.5-5.1); Sodium 140 mmol/L (136-145); Total Bilirubin 0.5 mg/dL (0.15-1.2); Total Protein 6.1 g/dL (6.6-8.7); Uric Acid 4.5 mg/dL (2.4-5.7)
[2024-08-07 12:16] LABS: Urine Creatinine 93 mg/dL (28-217); Urine Protein Random 12 mg/dL
[2024-08-07 12:18] LABS: UPRO/UCREAT Ratio 0.13 mg/mg CR
[2024-08-07 12:34] LABS: Add Urine Microscopic? YES; Bacteria Urine 1+ /hpf; Hyaline Casts Urine 0-4 /lpf; RBC Urine 0-4 /hpf (0-2); UA Manual Slide Review YES; UA Slide Review UA Slide Review Perf; WBC Urine 0-4 /hpf (0-5)
== END 2024-08-07 12:51 | disposition home or self-care (01) ==
LOC: OPOB 09:00 → OBGYN 09:02
PROVIDERS: PCP Family Medicine; Visit Provider Family Medicine
DX: O26.899 Other specified pregnancy related conditions, unspecified trimester (principal); Z3A.00 Weeks of gestation of pregnancy not specified; R10.9 Unspecified abdominal pain; Z91.81 History of falling
CPT/HCPCS: 36415; 59025; 80053; 81001; 82570; 84156; 84550; 85025; 99211

== ENCOUNTER 2024-08-19 11:35 | Outpatient (CLI) | payer BC, SELFPAY ==
[2024-08-19 11:35] VITALS: RESP 17; BMI 38.2
[2024-08-19 12:19] VITALS: BP 118/56; PULSE 85
[2024-08-19 12:39] VITALS: BP 123/58; PULSE 80
== END 2024-08-19 12:55 | disposition home or self-care (01) ==
LOC: OPOB 11:40 → OBGYN 11:59
PROVIDERS: PCP Family Medicine; Visit Provider Family Medicine
DX: O26.899 Other specified pregnancy related conditions, unspecified trimester (principal); Z3A.00 Weeks of gestation of pregnancy not specified; N89.8 Other specified noninflammatory disorders of vagina
CPT/HCPCS: 59025; 83986; 99211

== ENCOUNTER 2024-08-20 10:52 | Inpatient (IN) | payer BC, SELFPAY ==
[2024-08-20] VITALS (67 sets, daily range): BP systolic 112–175; BP diastolic 55–87; PULSE 71–118; O2SAT 88–100; BMI 36.0
[2024-08-20 13:03] LABS: Basophils % 0.2 %; Eosinophils # 0.1 10^3/uL (0.0-0.8); Eosinophils % 0.5 %; Hematocrit 38.1 % (36-47); Lymphocytes # 1.9 10^3/uL (0.8-4.8); Lymphocytes % 15.6 %; Mean Corpuscular HGB Conc 33.9 g/dL (30-55); Mean Corpuscular Hemoglobin 31.9 pg (27-33); Mean Corpuscular Volume 94.3 fl (85-98); Monocytes # 0.7 10^3/uL (0.2-0.9); Monocytes % 5.3 %; Neutrophils # 9.65 10^3/uL (1.8-7.7); Neutrophils % 78.2 %; Nucleated Red Blood Cells % 0 %; Platelet Count 210 10^3/cmm (157-399); Red Blood Count 4.04 10^6/uL (3.85-5.65); Red Cell Distribution Width 14.5 % (12.1-15.1); White Blood Count 12.33 10^3/uL (3.29-11.43)
[2024-08-20] MEDS: dextrose 5%-lactated ringers 1,000 ML 125 ML IV ×2 (13:34→22:53)
[2024-08-20] MEDS: oxytocin 30 UNIT/500 ML BAG 4 UNIT IV (13:34)
--- NOTE | 2024-08-20 16:28 | PM.HP ---
Providers/Chief Complaint Admitting Physician: Renny Matthews MD Primary Care Provider: Renny Matthews MD Chief Complaint: IOL History of Present Illness Cass Gomez is a 29 year old @ 39.2 weeks gestation by LMP consistent with 11-week ultrasound.? Her is c/b h/o borderline gHTN, h/o LGA . The patient presented to labor and delivery on the early afternoon of 08/20/2024 for a scheduled elective induction of labor due to history of large for gestational age infant and prior pregnancies. The patient has been feeling well. She denies any chest pains, shortness of breath, nausea, vomiting, diarrhea, constipation, dysuria, leakage of fluid, vaginal bleeding, fever. Medications/Allergies Home Medications ?Medication ?Instructions ?Recorded ?Confirmed ?Last Taken ?Type vitamins no.154-ferrous 1 tab PO DAILY 12/30/23 08/19/24 08/19/24 06:00 History fumarate 27 mg-folic acid 1 mg tablet ( Plus Vitamin) Allergies Allergy/AdvReac Type Severity Reaction Status Date / Time Sulfa (Sulfonamide Allergy rash Verified 08/07/24 10:04 Antibiotics) PFSH Acute PFSH: Medical History Otitis media s Surgical History Hx of wisdom tooth extraction Family History Mother Stroke, Onset Age: 63 Family/Other Stroke Early 50's Other Cancer Social History Smoking and tobacco/nicotine status: never used tobacco/nicotine Alcohol intake: never Substance/Drug Use: never Female Reproductive History: : 3 Vitals/I&O/Wt Last Vital Signs Pulse 77 08/20/24 16:15 BP 118/58 08/20/24 16:15 O2 Del Method Room Air 08/20/24 11:00 08/20/24 08/20/24 08/20/24 06:59 14:59 22:59 Intake Total 6.734 / 6.734 14.533 / 21.267 Balance 6.734 / 6.734 14.533 / 21.267 Weight last 48 hrs Weight 251 lb Physical Exam Narrative: General: Alert and oriented x3 Eyes: Pupils equal round and reactive to light and accommodation Mouth: Mucous membranes moist, pharynx non-erythematous Cardiac: Regular rate and rhythm without murmurs Lungs: Clear to auscultation bilaterally without wheezes, crackles or rhonchi Abdomen: Soft, non-tender, fundus consistent with gestational age : 360/-3/med Extremities: Trace edema in the bilateral lower extremities Data 08/20/24 11:25 A&P Assessment and plan (1) Intrauterine : The patient is doing well at this time. heart tones are in the mid 130s with moderate variability and good accelerations consistent with a category 1 tracing. Contractions are every 2 to 3 minutes. The patient has been started on Pitocin for induction of labor and is currently on 20 units of Pitocin. We will plan to continue with induction and if she is not making adequate change plan for AROM. The patient may receive a laboring epidural if she would like. She would like to go without if possible. The patient is GBS negative. All questions were answered. Proceed with routine intrapartum management of labor and delivery. (2) Supervision of normal intrauterine in multigravida: PDMP PDMP Reviewed: Not Reviewed Attestations Medical Necessity Statement*: The patient will be here for greater than 2 midnights due to routine intrapartum and management of labor and delivery. Coding Level of Care Code Acute Code for Chg Fwd Diagnoses Intrauterine Z34.90 Supervision of normal intrauterine in multigravida Z34.80
[2024-08-20] MEDS: sodium chloride 0.9% 1,000 ML 999 ML IV (21:07)
[2024-08-20] MEDS: ROPivacaine syringe 100 MG/50 ML SYRINGE 10 MG EPIDURAL (22:31)
--- NOTE | 2024-08-20 22:33 | ANES.PREANE2 ---
Pre-Anesthetic Assessment Height/Weight: Height 1.78 m Weight 113.852 kg Pulse BP Pulse Ox O2 Del Method 91 127/60 100 Room Air 08/20/24 22:30 08/20/24 22:29 08/20/24 22:30 08/20/24 11:00 Preop Diagnosis: Active Labor Labor Epidural Familial anesthetic complications: none Was Beta Tessa taken within 24 hours: N/A Was Clonidine taken within 24 hours: N/A Last intake: clears- current meal-1030 Social No alcohol and No tobacco Exam alert, oriented x 3, clear to auscultation bilaterally and regular rate & rhythm Airway Submandibular: within normal limits Cervical ROM: within normal limits Mallampati: Class I Dentition: full Pulmonary None reported CV/HEM None reported None reported Hepatic None reported GI Gastroesophageal Reflux Disease Metabolic None reported Musc/skel None reported Neuropsych None reported Anesthetic Plan ASA status: 2 Anesthesia: Regional (specify below) Other: Labor Epidural Medications/Allergies Home Medications ?Medication ?Instructions ?Recorded ?Confirmed ?Last Taken ?Type vitamins no.154-ferrous 1 tab PO DAILY 12/30/23 08/19/24 08/19/24 06:00 History fumarate 27 mg-folic acid 1 mg tablet ( Plus Vitamin) Allergies Allergy/AdvReac Type Severity Reaction Status Date / Time Sulfa (Sulfonamide Allergy rash Verified 08/07/24 10:04 Antibiotics) Current Medications Generic Name Dose Route Start Last Admin Trade Name Freq PRN Reason Stop Dose Admin Dextrose/Lactated Ringer's 1,000 mls @ 125 mls/hr 08/20/24 12:45 08/20/24 22:17 Dextrose 5%-Lactated Ringers IV 125 mls/hr .Q8H BOYD Infusion Oxytocin 30 unit in 500 mls @ 4 mls/hr 08/20/24 12:45 08/20/24 15:42 Pitocin IV 20 milliunit/min .Q24H BOYD 20 mls/hr Titration Protocol 4 MILLIUNIT/MIN Sodium Chloride 1,000 mls @ 999 mls/hr 08/20/24 20:50 08/20/24 22:17 Sodium Chloride 0.9% IV Infused .Q1H1M PRN Infusion See label comments PFSH Anesthesia Medical History Otitis media s Surgical History Hx of wisdom tooth extraction Family History Mother Stroke, Onset Age: 63 Family/Other Stroke Early 50's Other Cancer Social History Smoking and tobacco/nicotine status: never used tobacco/nicotine Alcohol intake: never Substance/Drug Use: never Female Reproductive History : 3 Data Anesthesia 08/20/24 11:25 Short CBC 08/20/24 Range/Units 11:25 WBC 12.33 H (3.29-11.43) 10^3/uL Hgb 12.90 (11.27-16.99) g/dL Hct 38.1 (36-47) % MCV 94.3 (85-98) fl Plt Count 210 (157-399) 10^3/cmm Neut % (Auto) 78.2 % Neut # (Auto) 9.65 H (1.8-7.7) 10^3/uL Blood Bank 08/20/24 11:25 Blood Type O Positive Rho(D) Type Rh positive Antibody Screen Negative Cardiac Studies: No Data to Display Anesthesia Procedures Epidural Time Out Performed: Yes Consents Signed: Procedure Consent Consent: requested by attending/covering physician, from patient, risks and benefits reviewed and patient agrees to proceed Lumbar Level: L3-L4 Epidural position: sitting Epidural procedure: sterile prep of area, 1% lidocaine to numb the area, negative for paresthesia passed, test dose given, 1.5% xylocaine 1:200k epi (5ml), 0.2% Ropivacaine bolus ml (5ml), placed PCEA, no systemic response, sterile dressing applied, L.U.D. no apparent complications and 0.2% Ropiavacaine @ mls/hr (10) Additional Comments: EMMA at 6.5 cm on second attempt, catheter threaded to 12cm. Test dose given - heme -csf. sterile dressing applied patient comfortable.
[2024-08-21] VITALS (22 sets, daily range): BP systolic 109–169; BP diastolic 56–79; PULSE 60–115; RESP 16–18; TEMP 36.6–36.7; O2SAT 100
--- NOTE | 2024-08-21 02:29 | P.PCNOB_ITS ---
Delivery Note: Date of delivery: August 21, 2024 Pre-delivery diagnoses: 1. Intrauterine at 39.3 weeks gestation 2. History of large for gestational age 3. History of borderline gestational hy pertension Post-delivery diagnoses: 1. Intrauterine status post s pontaneous vaginal delivery at 39.3 weeks gestation 2. History of large for gestational age infant 3. History of borderline gestational hy pertension 4. Delivery of healthy male we[place]kat sajan 8 pounds 9 ounces with Apgars of 9 and 9 Procedure: Spontaneous vaginal delivery Delivering Physician: Renny Matthews MD Estimated blood loss (mL): 100 Findings: 1. Healthy male weighing 8 pound s 9 ounces with Apgars of 9 and 9 2. Intact placenta with peripheral umbi lical cord insertion site Pre-Delivery Course: Cass Gomez is a 29 year old G3 now P3 status post spontaneous vaginal delivery @ 39.3 weeks gestation by LMP consistent with 11-week ultrasound.? Her was c/b h/o borderline gHTN, h/o LGA infant. The patient presented to labor and delivery on the early afternoon of 08/20/2024 for a scheduled elective induction of labor due to history of large for gestational age and prior pregnancies. The patient was 2 cm dilated upon presentation. The patient was started on IV Pitocin on the early afternoon of 08/20/2024. She responded well and had regular contractions. By 2144 spontaneous rupture of membranes took place and clear fluid was noted. The patient received a laboring epidural. Delivery: The patient continued to make change and her epidural worked well for her. The patient was complete by 1:41 AM on 08/21/2024. The patient began pushing at 1:51 AM on 08/21/2024. The patient pushed well and the delivered in the OA position at 1:53 AM on 08/21/2024. The infant's left shoulder was the anterior shoulder and it delivered with ease. The rest the infant delivered with ease. The infant's mouth and nose were bulb suction by myself and the was vigorous at . The infant was placed on the mother's chest where the nurses were awaiting to care for him. After approximately 1 minute, the umbilical cord was clamped by myself and cut by the infant's father. Cord blood was obtained. The cord was then drained of blood and traction was placed on umbilical cord. The placenta delivered without complication at 2:01 AM on 08/21/2024. The placenta was noted to be intact with a peripheral umbilical cord insertion site. The cervix was inspected and no lacerations were noted. The vaginal wall was inspected and a small second-degree tear was noted in the perineal region. This did not extend to the rectum. Adequate anesthesia was present from the epidural. 3-0 Vicryl was used to repair the tear in a running fashion. The patient tolerated this well. Rectal exam was done and no sutures were noted in the rectal vault. Currently both the patient and are doing well. History History History 3 Term 3 0 Miscarriages/Ectopic Living Children 3 Past Pregnancies Del. Date GA/Weeks Outcome Route Wt Inf Gender Labor Lgth Comp. Anesth esia Location 03/04/18 Vaginal Female 09/25/21 39 live - full term Vaginal 9 lb 13 oz Female 12 hr regional [facility] 08/21/24 39 live - full term Vaginal 8 lb 9 oz Male 12 hrs regional [facility] Delivery Date: 08/21/24 Last Updated by: Renny Matthews MD No complications A&P Assessment and plan (1) Spontaneous vaginal delivery: PDMP PDMP Reviewed: Not Reviewed Coding Level of Care Code Acute Code for Chg Fwd Diagnoses Spontaneous vaginal delivery O80
[2024-08-21] MEDS: HYDROcodone-acetaminophen 5-325 mg Tablet PO (03:53)
[2024-08-21] MEDS: ibuprofen 800 mg tablet PO ×3 (08:27→22:58)
[2024-08-21] MEDS: docusate sodium 100 mg Capsule PO (08:27)
[2024-08-21] MEDS: PRENATAL VIT NO.130/IRON/FOLIC 1 EACH TABLET PO (08:27)
[2024-08-21 16:56] LABS: Hematocrit 37.9 % (36-47); Mean Corpuscular Hemoglobin 31.8 pg (27-33); Mean Corpuscular Volume 96.4 fl (85-98); Mean Platelet Volume 12.3 fL (7.4-10.4); Platelet Count 186 10^3/cmm (157-399); Red Blood Count 3.93 10^6/uL (3.85-5.65); Red Cell Distribution Width 14.3 % (12.1-15.1); White Blood Count 15.05 10^3/uL (3.29-11.43)
[2024-08-22 04:00] VITALS: BP 121/66; PULSE 80; RESP 18; TEMP 36.7
--- NOTE | 2024-08-22 08:23 | ANE.PACU2 ---
Inpatient post-anesthesia follow up: Airway intact: Yes Vital signs: Temperature 98.0 F Pulse Rate 80 Respiratory Rate 17 Blood Pressure 140/81 Pulse Oximetry 98 Oxygen Delivery Me thod Room Air Oxygen Flow Rate Fraction of Inspir ed Oxygen Hydration adequate: Yes Nausea and vomiting: No Pain level: 1 Mental status: Baseline Epidural Start/End: Epidural Start Date: 08/20/24 Epidural Start Time: 22:07 Epidural End Date: 08/21/24 Epidural End Time: 03:50
[2024-08-22 10:00] VITALS: BP 140/81; PULSE 70; RESP 16; TEMP 37.3; O2SAT 97
[2024-08-22] MEDS: ibuprofen 800 mg tablet PO (10:24)
[2024-08-22] MEDS: PRENATAL VIT NO.130/IRON/FOLIC 1 EACH TABLET PO (10:24)
[2024-08-22] MEDS: docusate sodium 100 mg Capsule PO (10:24)
--- NOTE | 2024-08-22 10:31 | P.DS_ITS ---
Discharge Providers Date of Admission: 08/20/24 10:52 Date of Discharge: August 22, 2024 Attending Provider at Admission: Renny Matthews MD Attending Provider at Discharge: Renny Matthews MD Primary Care Provider: Renny Matthews MD Diagnoses at Discharge Discharge Diagnosis (1) Spontaneous vaginal delivery: Status: Acute Other Information Additional DC diagnoses/information: 1. Intrauterine status post spontaneous vaginal delivery at 39.3 weeks gestation 2. History of large for gestational age infant 3. History of borderline gestational hypertension 4. Delivery of healthy male weighing 8 pounds 9 ounces with Apgars of 9 and 9 Reason for Visit Reason for Visit: IOL Brief History: Cass Gomez is a 29 year old G3 now P3 status post spontaneous vaginal delivery @ 39.3 weeks gestation by LMP consistent with 11-week ultrasound.? Her was c/b h/o borderline gHTN, h/o LGA . The patient presented to labor and delivery on the early afternoon of 08/20/2024 for a scheduled elective induction of labor due to history of large for gestational age infant and prior pregnancies. Hospital Course Hospital Course The patient was 2 cm dilated upon presentation. The patient was started on IV Pitocin on the early afternoon of 08/20/2024. She responded well and had regular contractions. By 2144 spontaneous rupture of membranes took place and clear fluid was noted. The patient received a laboring epidural. The patient delivered at 1:53 AM on 08/21/2024. The delivery was uncomplicated. Her bleeding has been small at this point. She did have a small second-degree laceration that was repaired. Currently the patient's pain is well-controlled. Her bleeding is decreasing well. She is ambulating, voiding, passing gas and tolerating food by mouth. We will plan to follow-up with her at 6 weeks or sooner if needed. Physical Exam Narrative: General: Alert and oriented x3 Cardiac: Regular rate and rhythm without murmurs Lungs: Clear to auscultation bilaterally without wheezes, crackles or rhonchi Abdomen: Soft, mild tenderness over uterus. The uterus is firm and 2 cm below the umbilicus. Extremities: Trace edema in the bilateral lower extremities Urinary Catheter Management: Newman Latex: Cath Placed During This Visit: yes, but has since been removed by the nurse Reason for Continuing Indwelling Catheter: Decision to DC Catheter Urinary Catheter Date of Insertion: 08/20/24 Urinary Catheter Time of Insertion: 22:57 Date Urinary Catheter Removed: 08/21/24 Time Urinary Catheter Discontinued: 01:50 Discharge Data Studies Completed and Pending Laboratory Results WBC 15.05 10^3/uL (3.29-11.43) H 08/21/24 16:35 RBC 3.93 10^6/uL (3.85-5.65) 08/21/24 16:35 Hgb 12.50 g/dL (11.27-16.99) 08/21/24 16:35 Hct 37.9 % (36-47) 08/21/24 16:35 MCV 96.4 fl (85-98) 08/21/24 16:35 MCH 31.8 pg (27-33) 08/21/24 16:35 MCHC 33.0 g/dL (30-55) 08/21/24 16:35 RDW 14.3 % (12.1-15.1) 08/21/24 16:35 Plt Count 186 10^3/cmm (157-399) 08/21/24 16:35 MPV 12.3 fL (7.4-10.4) H 08/21/24 16:35 Neut % (Auto) 78.2 % 08/20/24 11:25 Lymph % (Auto) 15.6 % 08/20/24 11:25 [place] % (Auto) 5.3 % 08/20/24 11:25 Eos % (Auto) 0.5 % 08/20/24 11:25 Baso % (Auto) 0.2 % 08/20/24 11:25 Neut # (Auto) 9.65 10^3/uL (1.8-7.7) H 08/20/24 11:25 Lymph # (Auto) 1.9 10^3/uL (0.8-4.8) 08/20/24 11:25 [place] # (Auto) 0.7 10^3/uL (0.2-0.9) 08/20/24 11:25 Eos # (Auto) 0.1 10^3/uL (0.0-0.8) 08/20/24 11:25 Baso # (Auto) 0.0 10^3/uL (0.0-0.1) 08/20/24 11:25 Nucleated RBC % (auto) 0 % 08/20/24 11:25 Nucleated RBCs # 0.0 /100WBC 08/20/24 11:25 Blood Type O Positive 08/20/24 11:25 Rho(D) Type Rh positive 08/20/24 11:25 Antibody Screen Negative 08/20/24 11:25 Vitals Last Vital Signs Temp 98.0 F 08/22/24 04:00 Pulse 80 08/22/24 04:00 Resp 18 08/22/24 04:00 BP 121/66 08/22/24 04:00 Pulse Ox 100 08/21/24 00:00 O2 Del Method Room Air 08/21/24 10:26 Discharge Plan Discharge Patient Disposition: Home Condition: Good Prescriptions: New ibuprofen 800 mg Tablet 800 mg PO TID Qty: 30 0RF Continued Plus Vitamin 27 mg iron- 1 mg tablet 1 tab PO DAILY Discharge Orders: Discharge Order (Routine); Ordered 08/22/24 Ordered By: Renny Matthews Referrals: Renny Matthews MD [Primary Care Provider] - 6 Weeks Discharge Diet: Regular Discharge Activity: Increase activity as tolerated Patient Instructions: Depression (DC), Preeclampsia and Eclampsia After Delivery (GEN), Hemorrhage (DC), OB Discharge Report, OB Food/Drug Interaction Guide, Opioid Safety, OB Home Care, OB Vaginal Deliveries, Abnormal Bleeding Activity Restrictions/Additional Instructions: Nothing per vagina for 6 weeks. Showers are recommended instead of baths for the first 6 weeks. Discharge Attestations Time Spent in Discharge Care*: greater than 30 min Quality Metrics Clinical Quality Measures [ No reported AMI, CVA or VTE this stay] Coding Level of Care Code Acute Code for Chg Fwd Diagnoses Spontaneous vaginal delivery O80
[2024-08-22 12:51] VITALS: BP 140/81; PULSE 80; RESP 17; TEMP 36.7; O2SAT 98
== END 2024-08-22 12:51 | disposition home or self-care (01) | DRG 807 ==
LOC: OBGYN 10:52
PROVIDERS: Admitting Provider Family Medicine; PCP Family Medicine; Visit Provider Family Medicine
DX: O70.1 Second degree perineal laceration during delivery (principal); Z37.0 Single live birth; Z3A.39 39 weeks gestation of pregnancy; O75.89 Other specified complications of labor and delivery; K21.9 Gastro-esophageal reflux disease without esophagitis
CPT/HCPCS: 36415; 51702; 59025; 59409; 83986; 85025; 85027; 86850; 86900; J2590; J2795; J7030; J7121; J9999